=== PATIENT | male | born 1955 | race African-American/Black ===

== ENCOUNTER 2018-09-02 21:21 | Emergency (ER) | payer MEDICARE, MEDICAID ==
[~2018-09-02] VITALS: Ht 182.9 cm; Wt 73.0 kg
[2018-09-03] MEDS ORDERED: KETOROLAC 30MG/ML VIAL IV STA (00:18)
[2018-09-03] MEDS ORDERED: SODIUM CHLORIDE 0.9% 1,000 ML IV ONE (00:18)
[2018-09-03] MEDS ORDERED: ONDANSETRON HCL 4MG/2ML INJ IV STA (00:18)
[2018-09-03 00:50] LABS: BASOPHILS % 0.6 % (0.0-2.0); EOSINOPHILS % 0.1 % (0.0-5.0); HEMATOCRIT. 39.5 % (42.0-52.0); HEMOGLOBIN. 12.8 g/dL (14.0-18.0); LYMPHOCYTES % 10.5 % (20.0-50.0); MEAN CORPUSCULAR HEMOGLOBIN 27.4 pg (28.0-32.0); MEAN CORPUSCULAR VOLUME 84.6 fL (80.0-94.0); MEAN PLATELET VOLUME 8.6 fl (7.4-10.4); MONOCYTES % 9.1 % (2.0-8.0); NEUTROPHILS % 79.7 % (40.0-76.0); PLATELET 352 x1000/uL (130-400); RED BLOOD CELL COUNT 4.67 mill/uL (4.7-6.1); RED CELL DISTRIBUTION WIDTH 17.6 % (11.6-14.6)
[2018-09-03 00:56] LABS: CHLORIDE 102 mEq/L (98-107)
[2018-09-03 06:04] VITALS: BP 133/74
== END 2018-09-03 06:12 | disposition home or self-care (01) ==
LOC: ER 22:01
DX: M54.41 Lumbago with sciatica, right side (principal); M25.551 Pain in right hip; F17.200 Nicotine dependence, unspecified, uncomplicated; F14.10 Cocaine abuse, uncomplicated; J44.9 Chronic obstructive pulmonary disease, unspecified
CPT/HCPCS: 36415; 72100; 73502; 73552; 80053; 85025; 96374; 96375; 99284; J1885; J2405; J7030

== ENCOUNTER 2019-05-08 18:42 | Inpatient (IN) | payer MEDICARE ==
[~2019-05-08] VITALS: Ht 177.8 cm; Wt 80.7 kg
[2019-05-08] MEDS ORDERED: ACETAMINOPHEN 325MG TABLET PO STA (19:00)
[2019-05-08] MEDS ORDERED: SODIUM CHLORIDE 0.9% 1000ML BAG (SEPSIS BOLUS) IV ONE (19:00)
[2019-05-08 19:19] LABS: BASOPHILS % 0.5 % (0.0-2.0); EOSINOPHILS % 1.6 % (0.0-5.0); HEMATOCRIT. 41.5 % (42.0-52.0); HEMOGLOBIN. 13.6 g/dL (14.0-18.0); LYMPHOCYTES % 7.4 % (20.0-50.0); MEAN CORPUSCULAR HEMOGLOBIN 28.3 pg (28.0-32.0); MEAN CORPUSCULAR VOLUME 86.3 fL (80.0-94.0); MEAN PLATELET VOLUME 8.8 fl (7.4-10.4); MONOCYTES % 7.9 % (2.0-8.0); NEUTROPHILS % 82.6 % (40.0-76.0); PLATELET 156 x1000/uL (130-400); RED BLOOD CELL COUNT 4.82 mill/uL (4.7-6.1)
[2019-05-08 19:25] LABS: CHLORIDE 106 mEq/L (98-107); PROTHROMBIN TIME 10.6 sec (9.6-11.0)
[2019-05-08] MEDS ORDERED: VANCOMYCIN 1 G PREMIX 200 ML IV ONE (19:30)
[2019-05-08] MEDS ORDERED: PIPERACILLIN/TAZ 3.375G PREMIX 50 ML IV ONE (19:30)
[2019-05-08] MEDS ORDERED: ACETAMINOPHEN 325MG TABLET PO PRN (21:45)
[2019-05-08] MEDS ORDERED: LORAZEPAM 2MG/ML CPJ IV PRN (21:45)
[2019-05-08] MEDS ORDERED: DEXTROSE 50% WATER 50ML SYRINGE IV PRN (21:45)
[2019-05-08] MEDS ORDERED: PIPERACILLIN/TAZ 3.375G PREMIX 50 ML IV SCH (21:45)
[2019-05-08] MEDS ORDERED: NA PHOS,M-B/NA PHOS,DI-BA ENEMA 118ML PR PRN (21:45)
[2019-05-08] MEDS ORDERED: MORPHINE SULFATE 2 MG/ML CPJ (NOT FOR IM USE) IV PRN (21:45)
[2019-05-08] MEDS ORDERED: MAGNESIUM/ALUMINUM HYDROXIDE/SIMETHICONE 30ML UDC PO PRN (21:45)
[2019-05-08] MEDS ORDERED: ONDANSETRON HCL 4MG/2ML INJ IV PRN (21:45)
[2019-05-08] MEDS ORDERED: DIPHENHYDRAMINE 50MG/ML VIAL IV PRN (21:45)
[2019-05-08] MEDS ORDERED: HYDRALAZINE 20MG/ML VIAL IV PRN (21:45)
[2019-05-08] MEDS ORDERED: DOCUSATE SODIUM 100MG CAPSULE PO PRN (21:45)
[2019-05-08] MEDS ORDERED: CLONIDINE 0.1MG TABLET PO PRN (21:45)
[2019-05-08 23:41] LABS: CREATINE KINASE 977 IU/L (39-308)
[2019-05-08 23:42] LABS: CREATINE KINASE MB FRACTION 4.5 ng/mL (0.5-3.6)
[2019-05-09] VITALS (12 sets, daily range): BP systolic 95–138; BP diastolic 52–93
[2019-05-09] MEDS ORDERED: SODIUM CHLORIDE 0.9% 1,000 ML IV SCH (01:30)
[2019-05-09] MEDS: HYDROCODONE/ACETAMINOPHEN 10/325MG TABLET PO PRN ×3 (03:49→14:13)
[2019-05-09] MEDS ORDERED: PIPERACILLIN/TAZOBACTAM 3.375 G in DEXT 5% WATER 100 ML IV SCH (05:00)
[2019-05-09] MEDS: SODIUM CHLORIDE 0.9% INJ 3ML FLUSH IVF SCH ×3 (05:15→21:50)
[2019-05-09] MEDS: VANCOMYCIN 1250MG in DEXTROSE 5% WATER 250ML IV SCH ×2 (05:15→17:16)
[2019-05-09] MEDS: BLOOD SUGAR DIAGNOSTIC STRIP TEST SCH ×4 (06:02→21:49)
[2019-05-09] MEDS: INSULIN LISPRO 100 UNITS/ML SUBCUT SCH ×4 (06:02→21:00)
[2019-05-09 07:25] LABS: BASOPHILS % 0.9 % (0.0-2.0); EOSINOPHILS % 2.6 % (0.0-5.0); HEMOGLOBIN. 11.9 g/dL (14.0-18.0); LYMPHOCYTES % 12.7 % (20.0-50.0); MEAN CORPUSCULAR HEMOGLOBIN 28.4 pg (28.0-32.0); MEAN CORPUSCULAR VOLUME 86.2 fL (80.0-94.0); MONOCYTES % 8.2 % (2.0-8.0); NEUTROPHILS % 75.6 % (40.0-76.0); PLATELET 158 x1000/uL (130-400); RED BLOOD CELL COUNT 4.18 mill/uL (4.7-6.1); RED CELL DISTRIBUTION WIDTH 18.1 % (11.6-14.6)
[2019-05-09 07:39] LABS: CHLORIDE 109 mEq/L (98-107)
[2019-05-09 07:58] LABS: LDL CHOLESTEROL 42 mg/dL (5-100)
[2019-05-09 07:59] LABS: CREATINE KINASE 953 IU/L (39-308)
[2019-05-09 08:00] LABS: CREATINE KINASE MB FRACTION 3.8 ng/mL (0.5-3.6); HDL CHOLESTEROL 81 mg/dL (40-59); T4 FREE 0.95 ng/dL (0.76-1.46)
[2019-05-09] MEDS ORDERED: PNEUMOCOCCAL 23-VAL P-SAC VAC 0.5 ML IM ONE (08:00)
[2019-05-09] MEDS: ENOXAPARIN 40MG/0.4ML SYR SUBCUT SCH (08:37)
[2019-05-09] MEDS: PIPERACILLIN/TAZOBACTAM 3.375 G in DEXT 5% WATER 100 ML IV SCH ×3 (11:00→21:50)
[2019-05-09] MEDS: IPRATROPIUM/ALBUTEROL 0.5-3(2.5)MG/3ML NEB HHN PRN ×2 (13:40→21:30)
[2019-05-09] MEDS: BUDESONIDE 0.5MG/2ML NEB HHN SCH ×2 (13:40→21:30)
[2019-05-09] MEDS: METHYLPREDNISOLONE SOD SUCC 40 MG/ML VIAL IV SCH ×2 (14:12→21:00)
[2019-05-09 18:34] LABS: BG BASE EXCESS 3.5 mmol/L (-2.0-2.0); BG CARBOXYHEMOGLOBIN 1.1 % (0.5-1.5); BG DEOXYHEMOGLOBIN 11.3 % (0.0-5.0); BG FRACTION INSPIRED OXYGEN 28; BG HCO3 ACT 30.5 mmol/L (22.0-26.0); BG METHEMOGLOBIN 0.1 % (0.0-1.5); BG OXYGEN SATURATION 88.6 % (92.0-98.5); BG OXYHEMOGLOBIN 87.5 % (94.0-97.0); BG PCO2 57.6 mmHg (35.0-45.0); BG PH 7.342 (7.350-7.450); BG PO2 58.8 mmHg (75.0-100.0); BG SAMPLE SITE RIGHT RADIAL; BG TOTAL HEMOGLOBIN 12.7 g/dL (12.0-18.0); BG VENT MODE NASAL CANNULA
[2019-05-09] MEDS: MIRTAZAPINE 15MG TABLET PO SCH (21:49)
[2019-05-09] MEDS: RISPERIDONE 1MG TABLET PO SCH (21:49)
[2019-05-09] MEDS: BENZTROPINE MESYLATE 1MG TABLET PO SCH (21:49)
[2019-05-10] VITALS (10 sets, daily range): BP systolic 95–144; BP diastolic 51–96
[2019-05-10] MEDS: PIPERACILLIN/TAZOBACTAM 3.375 G in DEXT 5% WATER 100 ML IV SCH ×4 (04:00→23:15)
[2019-05-10 04:31] LABS: BASOPHILS % 0.7 % (0.0-2.0); HEMATOCRIT. 35.7 % (42.0-52.0); HEMOGLOBIN. 11.8 g/dL (14.0-18.0); LYMPHOCYTES % 14.7 % (20.0-50.0); MEAN CORPUSCULAR HEMOGLOBIN 28.4 pg (28.0-32.0); MEAN CORPUSCULAR VOLUME 85.7 fL (80.0-94.0); MEAN PLATELET VOLUME 9.2 fl (7.4-10.4); MONOCYTES % 8.1 % (2.0-8.0); NEUTROPHILS % 74.5 % (40.0-76.0); PLATELET 164 x1000/uL (130-400); RED BLOOD CELL COUNT 4.17 mill/uL (4.7-6.1); RED CELL DISTRIBUTION WIDTH 17.7 % (11.6-14.6)
[2019-05-10 04:38] LABS: CHLORIDE 104 mEq/L (98-107)
[2019-05-10 04:46] LABS: VANCOMYCIN TROUGH 4.1 ug/mL (5.0-10.0)
[2019-05-10] MEDS: METHYLPREDNISOLONE SOD SUCC 40 MG/ML VIAL IV SCH ×3 (05:00→22:52)
[2019-05-10] MEDS: SODIUM CHLORIDE 0.9% INJ 3ML FLUSH IVF SCH ×3 (05:04→22:52)
[2019-05-10] MEDS: BLOOD SUGAR DIAGNOSTIC STRIP TEST SCH ×4 (06:35→21:00)
[2019-05-10] MEDS: INSULIN LISPRO 100 UNITS/ML SUBCUT SCH ×4 (06:36→21:00)
[2019-05-10] MEDS: ENOXAPARIN 40MG/0.4ML SYR SUBCUT SCH (08:22)
[2019-05-10] MEDS: BENZTROPINE MESYLATE 1MG TABLET PO SCH ×3 (08:23→22:51)
[2019-05-10] MEDS: HYDROCODONE/ACETAMINOPHEN 10/325MG TABLET PO PRN ×2 (09:10→23:55)
[2019-05-10] MEDS: BUDESONIDE 0.5MG/2ML NEB HHN SCH ×2 (09:14→21:43)
[2019-05-10] MEDS: IPRATROPIUM/ALBUTEROL 0.5-3(2.5)MG/3ML NEB HHN PRN ×2 (09:14→21:44)
[2019-05-10] MEDS ORDERED: LIDOCAINE HCL 1% 20ML VIAL (Pyxis) INJ ONE (10:23)
[2019-05-10] MEDS: GUAIFENESIN 200MG/10ML SUGAR FREE UDC PO PRN ×2 (11:55→17:13)
[2019-05-10] MEDS ORDERED: ALLO300T2 MT (16:55)
[2019-05-10] MEDS ORDERED: PANT40TA4 MT (17:05)
[2019-05-10] MEDS ORDERED: BUDE6HFA INH (17:05)
[2019-05-10] MEDS ORDERED: P20 MT (17:05)
[2019-05-10] MEDS ORDERED: TIOT18CA3 IH (17:05)
[2019-05-10] MEDS ORDERED: ALBUTEROL INH (17:05)
[2019-05-10] MEDS ORDERED: METROPOLOL PO (17:05)
[2019-05-10] MEDS ORDERED: RESPIRIDONE PO (17:05)
[2019-05-10] MEDS ORDERED: MIRT-91 MT (17:05)
[2019-05-10] MEDS ORDERED: ALBU18HF2 IH (17:05)
[2019-05-10] MEDS: RISPERIDONE 1MG TABLET PO SCH ×2 (22:36→22:51)
[2019-05-10] MEDS: MIRTAZAPINE 15MG TABLET PO SCH ×2 (22:37→22:51)
[2019-05-11] MEDS: PIPERACILLIN/TAZOBACTAM 3.375 G in DEXT 5% WATER 100 ML IV SCH ×3 (05:50→18:04)
[2019-05-11] MEDS: METHYLPREDNISOLONE SOD SUCC 40 MG/ML VIAL IV SCH ×2 (05:51→13:31)
[2019-05-11] MEDS: SODIUM CHLORIDE 0.9% INJ 3ML FLUSH IVF SCH ×2 (05:58→13:42)
[2019-05-11 07:38] VITALS: BP 135/94
[2019-05-11] MEDS: BLOOD SUGAR DIAGNOSTIC STRIP TEST SCH ×3 (07:39→17:25)
[2019-05-11] MEDS: INSULIN LISPRO 100 UNITS/ML SUBCUT SCH ×3 (08:15→17:25)
[2019-05-11] MEDS: ENOXAPARIN 40MG/0.4ML SYR SUBCUT SCH (08:17)
[2019-05-11] MEDS: GUAIFENESIN 200MG/10ML SUGAR FREE UDC PO PRN (08:27)
[2019-05-11] MEDS: BUDESONIDE 0.5MG/2ML NEB HHN SCH ×2 (09:31→22:27)
[2019-05-11] MEDS: IPRATROPIUM/ALBUTEROL 0.5-3(2.5)MG/3ML NEB HHN PRN (09:31)
[2019-05-11 10:00] VITALS: BP 127/103
[2019-05-11 12:00] VITALS: BP 117/80
[2019-05-11 13:10] LABS: CHLORIDE 104 mEq/L (98-107)
[2019-05-11] MEDS: HYDROCODONE/ACETAMINOPHEN 10/325MG TABLET PO PRN (13:41)
[2019-05-11] MEDS ORDERED: DILTIAZEM HCL 30MG TABLET PO SCH (14:00)
[2019-05-11 14:07] LABS: HEMATOCRIT. 38.2 % (42.0-52.0); HEMOGLOBIN. 12.4 g/dL (14.0-18.0); LYMPHOCYTES % 11.4 % (20.0-50.0); MEAN CORPUSCULAR HEMOGLOBIN 28.1 pg (28.0-32.0); MEAN CORPUSCULAR VOLUME 86.7 fL (80.0-94.0); MEAN PLATELET VOLUME 9.3 fl (7.4-10.4); MONOCYTES % 6.5 % (2.0-8.0); NEUTROPHILS % 81.1 % (40.0-76.0); PLATELET 231 x1000/uL (130-400); RED CELL DISTRIBUTION WIDTH 17.5 % (11.6-14.6)
[2019-05-11 16:00] VITALS: BP 124/84
[2019-05-11 19:50] LABS: CLARITY URINE CLEAR (CLEAR); COLOR URINE YELLOW (YELLOW); KETONES URINE NEGATIVE (NEGATIVE); LEUKOCYTE ESTERASE URINE NEGATIVE (NEGATIVE); NITRITE URINE NEGATIVE (NEGATIVE); OCCULT BLOOD URINE NEGATIVE (NEGATIVE); PH URINE 6.5 (4.5-8.0); PROTEIN URINE NEGATIVE (NEGATIVE); SPECIFIC GRAVITY URINE 1.011 (1.005-1.030); UROBILINOGEN URINE 0.2 E.U./dL (0.2-1.0)
[2019-05-11 20:00] VITALS: BP 142/91
[2019-05-11 20:13] LABS: *AMPHETAMINES SCREEN URINE NEGATIVE (NEGATIVE); *BARBITURATES SCREEN URINE NEGATIVE (NEGATIVE); *BENZODIAZEPINES SCREEN URINE NEGATIVE (NEGATIVE); *COCAINE SCREEN URINE NEGATIVE (NEGATIVE)
[2019-05-11 20:14] LABS: CANNABINOID URINE SCREEN NEGATIVE (NEGATIVE); METHADONE URINE SCREEN NEGATIVE (NEGATIVE); OPIATES URINE SCREEN PRESUMTIVE POSITIVE (NEGATIVE); PHENCYCLIDINE URINE SCREEN NEGATIVE (NEGATIVE)
[2019-05-11] MEDS ORDERED: METHYLPREDNISOLONE SOD SUCC 40 MG/ML VIAL IV SCH (23:00)
== END 2019-05-11 22:45 | DRG 720 ==
LOC: ER 18:42 → 3WST 21:08 → EDBEDREQ 21:11 → EDBEDREQTM 21:11 → ENRESERV 23:19 → 7WST 05-11 10:27
PROVIDERS: ADMIT Internal Medicine; ATTEND Internal Medicine
PROC: 02HV33Z Insertion of Infusion Device into Superior Vena Cava, Percutaneous Approach (ICD-10-PCS; principal; 2019-05-10)
PROC: B548ZZA Ultrasonography of Superior Vena Cava, Guidance (ICD-10-PCS; 2019-05-10)
DX: A41.9 Sepsis, unspecified organism (principal); J96.01 Acute respiratory failure with hypoxia; J18.9 Pneumonia, unspecified organism; J44.0 Chronic obstructive pulmonary disease with (acute) lower respiratory infection; M62.82 Rhabdomyolysis; D64.9 Anemia, unspecified; E11.9 Type 2 diabetes mellitus without complications; E86.0 Dehydration; J44.1 Chronic obstructive pulmonary disease with (acute) exacerbation; F31.9 Bipolar disorder, unspecified; Y95 Nosocomial condition; F14.90 Cocaine use, unspecified, uncomplicated; M10.9 Gout, unspecified; I10 Essential (primary) hypertension; Z87.891 Personal history of nicotine dependence; Z91.19 Patient's noncompliance with other medical treatment and regimen
CPT/HCPCS: 36415; 36600; 71045; 76937; 80048; 80061; 80202; 80305; 81003; 82375; 82550; 82553; 82805; 82962; 83036; 83605; 84145; 84439; 84443; 84484; 84550; 87804; 93005; 93970; 94640; 99291; C1725; J1650; J1815; J2543; J2920; J3370; J3490; J7030; J7060; J7620; J7626

== ENCOUNTER 2019-06-06 04:13 | Emergency (ER) | payer MEDICARE ==
[~2019-06-06] VITALS: Ht 177.8 cm; Wt 83.0 kg
[~2019-06-06 04:13] MED LIST: ALBU18HF2 IH; ALBUTEROL INH; ALLO300T2 MT; BUDE6HFA INH; METROPOLOL PO; MIRT-91 MT; P20 MT; PANT40TA4 MT; RESPIRIDONE PO; TIOT18CA3 IH
[2019-06-06] MEDS ORDERED: ALBUTEROL (0.083%) 2.5MG/3ML NEB HHN STA (04:59)
[2019-06-06] MEDS ORDERED: IPRATROPIUM BROMIDE (0.02%) 0.5MG/2.5ML NEB HHN STA (04:59)
[2019-06-06 05:22] LABS: HEMATOCRIT. 43.8 % (42.0-52.0); HEMOGLOBIN. 14.2 g/dL (14.0-18.0); MEAN CORPUSCULAR HEMOGLOBIN 28.3 pg (28.0-32.0); MEAN CORPUSCULAR VOLUME 87.2 fL (80.0-94.0); MEAN PLATELET VOLUME 8.1 fl (7.4-10.4); PLATELET 224 x1000/uL (130-400); RED BLOOD CELL COUNT 5.02 mill/uL (4.7-6.1); RED CELL DISTRIBUTION WIDTH 17.7 % (11.6-14.6)
[2019-06-06 05:31] LABS: CHLORIDE 100 mEq/L (98-107)
[2019-06-06 06:44] LABS: PLATELET ESTIMATE NORMAL
[2019-06-06] MEDS ORDERED: MAGNESIUM 2 G PREMIX 50 ML IV ONE (07:45)
[2019-06-06] MEDS ORDERED: ALBUTEROL (0.5%) 2.5MG/0.5ML NEB HHN ONE (07:45)
[2019-06-06] MEDS ORDERED: DEXAMETHASONE 10 MG/ML VIAL IV ONE (07:45)
[2019-06-06] MEDS ORDERED: AZITHROMYCIN 500 MG in DEXT 5% WATER 250 ML IV SCH (07:45)
[2019-06-06] MEDS ORDERED: CEPHALEXIN 250MG CAPSULE PO ONE (07:45)
[2019-06-06] MEDS ORDERED: CEFTRIAXONE 1 G PREMIX 50 ML IV ONE (12:00)
[2019-06-06] MEDS ORDERED: MAGNESIUM 2 G PREMIX 50 ML IV SCH (13:15)
[2019-06-06] MEDS ORDERED: DEXAMETHASONE 10 MG/ML VIAL IV SCH (13:15)
[2019-06-06] MEDS ORDERED: IPRATROPIUM/ALBUTEROL 0.5-3(2.5)MG/3ML NEB HHN ONE (14:30)
[2019-06-06] MEDS ORDERED: IOHEXOL-350 100 ML BOTTLE ONE (15:15)
[2019-06-06] MEDS ORDERED: ACETAMINOPHEN 325MG TABLET PO PRN (16:15)
[2019-06-06] MEDS ORDERED: IPRATROPIUM/ALBUTEROL 0.5-3(2.5)MG/3ML NEB HHN PRN (16:15)
[2019-06-06] MEDS ORDERED: ONDANSETRON HCL 4MG/2ML INJ IV PRN (16:15)
[2019-06-06] MEDS ORDERED: DEXTROSE 50% WATER 50ML SYRINGE IV PRN (16:15)
[2019-06-06] MEDS ORDERED: METHYLPREDNISOLONE SOD SUCC 40 MG/ML VIAL IV SCH (16:15)
[2019-06-06] MEDS ORDERED: BLOOD SUGAR DIAGNOSTIC STRIP TEST SCH (17:00)
[2019-06-06] MEDS ORDERED: LEVOFLOXACIN 750MG PREMIX 150 ML IV SCH (18:15)
[2019-06-06] MEDS ORDERED: INSULIN LISPRO 100 UNITS/ML SUBCUT SCH (18:20)
[2019-06-06] MEDS ORDERED: IPRATROPIUM/ALBUTEROL 0.5-3(2.5)MG/3ML NEB HHN SCH ×2 (20:00→20:15)
[2019-06-06] MEDS ORDERED: HYDROCODONE/ACETAMINOPHEN 10/325MG TABLET PO SCH (21:00)
[2019-06-06 22:00] VITALS: BP 116/76
[2019-06-06] MEDS ORDERED: ENOXAPARIN 40MG/0.4ML SYR SUBCUT SCH (23:00)
[2019-06-07] MEDS ORDERED: LEVOFLOXACIN 750MG PREMIX 150 ML IV SCH (16:15)
== END 2019-06-06 22:27 | disposition short-term general hospital (02) ==
LOC: ER 04:13 → EDBEDREQ 16:08 → ENRESERV 19:56 → CANRESERV 19:56 → CANBEDREQ 20:01 → ER 22:27
DX: R06.02 Shortness of breath (principal); J44.1 Chronic obstructive pulmonary disease with (acute) exacerbation; N49.2 Inflammatory disorders of scrotum; E11.9 Type 2 diabetes mellitus without complications; F20.9 Schizophrenia, unspecified; F14.10 Cocaine abuse, uncomplicated; Z79.899 Other long term (current) drug therapy
CPT/HCPCS: 36415; 71045; 71275; 76870; 80053; 82962; 83880; 84484; 85025; 87804; 93005; 93976; 94640; 96365; 96367; 96375; 99285; J0456; J0696; J1100; J3475; J7060; J7611; J7620; Q9967